=== PATIENT | female | born 1995 | race African-American/Black ===

== ENCOUNTER 2017-10-29 22:16 | Emergency (ER) | payer MEDICAID ==
[~2017-10-29] VITALS: Ht 170.2 cm; Wt 59.0 kg
[2017-10-29 22:51] VITALS: BP 122/87
== END 2017-10-29 23:10 | disposition home or self-care (01) ==
LOC: ER 22:16
DX: M25.531 Pain in right wrist (principal); F17.200 Nicotine dependence, unspecified, uncomplicated; F12.10 Cannabis abuse, uncomplicated; X50.0XXA Overexertion from strenuous movement or load, initial encounter; Y93.89 Activity, other specified; Y92.89 Other specified places as the place of occurrence of the external cause; Y99.0 Civilian activity done for income or pay
CPT/HCPCS: 99282

== ENCOUNTER 2019-01-24 17:37 | Emergency (ER) | payer MEDICAID ==
[~2019-01-24] VITALS: Ht 170.2 cm; Wt 74.0 kg
[2019-01-24 19:42] VITALS: BP 127/89
[2019-01-24] MEDS ORDERED: METHYLPREDNISOLONE SOD SUCC 125 MG/2 ML VIAL IM ONE (21:30)
== END 2019-01-24 21:50 | disposition home or self-care (01) ==
LOC: ER 17:37
DX: L50.0 Allergic urticaria (principal); T78.49XA Other allergy, initial encounter; F12.10 Cannabis abuse, uncomplicated; X58.XXXA Exposure to other specified factors, initial encounter
CPT/HCPCS: 96372; 99283; J2930

== ENCOUNTER 2019-04-11 05:50 | Emergency (ER) | payer MEDICAID ==
[~2019-04-11] VITALS: Ht 172.7 cm; Wt 75.0 kg
[2019-04-11] MEDS ORDERED: KETOROLAC 60MG/2ML VIAL IM ONE (07:00)
[2019-04-11] MEDS ORDERED: DIAZEPAM 2 MG TABLET PO ONE (07:00)
[2019-04-11] MEDS ORDERED: PREDNISONE 20MG TABLET PO ONE (07:00)
[2019-04-11 07:47] VITALS: BP 113/62
== END 2019-04-11 07:52 | disposition home or self-care (01) ==
LOC: ER 05:50
DX: M54.5 Low back pain (principal); M54.30 Sciatica, unspecified side; W01.0XXA Fall on same level from slipping, tripping and stumbling without subsequent striking against object, initial encounter; Y93.89 Activity, other specified; Y92.89 Other specified places as the place of occurrence of the external cause; Y99.8 Other external cause status
CPT/HCPCS: 96372; 99283; J1885; J7512